=== PATIENT | female | born 1945 | race Caucasian/White ===

== ENCOUNTER → 2017-09-18 | Outpatient (CLI) | payer OTHER | LOC: CAT 09:09 | DX: I25.10 Atherosclerotic heart disease of native coronary artery without angina pectoris (principal); J84.10 Pulmonary fibrosis, unspecified; J98.11 Atelectasis; J92.9 Pleural plaque without asbestos; R91.8 Other nonspecific abnormal finding of lung field ==

== ENCOUNTER → 2018-09-21 | Outpatient (CLI) | payer OTHER ==
[~2018-09-21] MED LIST: ASPIR 8181 MG PO; CARAFATE 1 GM TA1 G1 PO; CELEXA20 MG PO; DULERA 200 MCG/13 GM; EPIPEN 2-P0.3 MG/0.3 IM; KLOR-CON 1010 MEQ PO; LASIX 40 MG TAB40 M2 PO; MIRAPEX 0.250.25 M1 PO; NAPROSYN500 MG PO; OMEPRAZOLE 20 M20 M1 PO; PRAVACHOL40 MG PO; PROAIR HFA8.5 GM INH; SINGULAIR 10 MG10 M1 PO; SPIRIVA INH; TOPROL XL25 MG PO
== END ==
LOC: CAT 09:39
DX: K44.9 Diaphragmatic hernia without obstruction or gangrene (principal); R91.8 Other nonspecific abnormal finding of lung field

== ENCOUNTER → 2018-12-19 | Outpatient (CLI) | payer OTHER | LOC: CAT 10:04 | DX: R91.1 Solitary pulmonary nodule (principal); J98.4 Other disorders of lung; J98.11 Atelectasis; I70.0 Atherosclerosis of aorta; J45.909 Unspecified asthma, uncomplicated; I25.10 Atherosclerotic heart disease of native coronary artery without angina pectoris; F32.9 Major depressive disorder, single episode, unspecified; I11.0 Hypertensive heart disease with heart failure; I50.30 Unspecified diastolic (congestive) heart failure; K21.9 Gastro-esophageal reflux disease without esophagitis; E78.5 Hyperlipidemia, unspecified; G47.33 Obstructive sleep apnea (adult) (pediatric); Z86.718 Personal history of other venous thrombosis and embolism; Z86.711 Personal history of pulmonary embolism; Z88.5 Allergy status to narcotic agent; Z88.8 Allergy status to other drugs, medicaments and biological substances; Z88.0 Allergy status to penicillin ==

== ENCOUNTER → 2019-06-06 | Outpatient (CLI) | payer OTHER | LOC: CAT 10:54 | DX: I25.10 Atherosclerotic heart disease of native coronary artery without angina pectoris (principal); R91.1 Solitary pulmonary nodule; J98.4 Other disorders of lung; J98.11 Atelectasis; K44.9 Diaphragmatic hernia without obstruction or gangrene ==

== ENCOUNTER → 2019-10-18 | Outpatient (CLI) | payer OTHER | LOC: CAT 10-17 11:10 | DX: J98.4 Other disorders of lung (principal); R91.8 Other nonspecific abnormal finding of lung field ==

== ENCOUNTER → 2020-02-12 | Outpatient (CLI) | payer OTHER | LOC: CAT 09:26 | DX: J84.10 Pulmonary fibrosis, unspecified (principal); I25.10 Atherosclerotic heart disease of native coronary artery without angina pectoris; J98.4 Other disorders of lung ==